=== PATIENT | female | born 1985 | race Caucasian/White ===

== ENCOUNTER 2017-04-13 22:07 | Emergency (ER) | payer OTHER ==
[~2017-04-13] VITALS: Ht 154.9 cm; Wt 65.3 kg
[~2017-04-13 22:07] MED LIST: CELEXA10 MG PO; CIPRO500 MG PO; CLEOCIN150 MG PO; CLINDAMYCIN HC150 MG PO; FLAGYL500 MG PO; KEFLEX; MOTRIN600 MG PO; NAPROSYN500 MG PO; NOHOMEMEDS; NORCO 5/3251 TABLET PO; PRENATAL1 EACH PO; SAPHRIS10 MG SL; SEROQUEL XR150 MG PO; SEROquel PO; ULTRACET1 TABLET PO; VICODIN 5-3001 EACH PO; celeXA PO
[2017-04-13] MEDS ORDERED: ACULAR 0.5100 DROP/5 BOTH EYES (23:05)
[2017-04-13 23:24] VITALS: BP 135/78
== END 2017-04-13 23:24 | disposition home or self-care (01) ==
LOC: EME 22:07 → RME 22:07
DX: H10.33 Unspecified acute conjunctivitis, bilateral (principal); Z88.0 Allergy status to penicillin
CPT/HCPCS: 99281; 99283

== ENCOUNTER 2017-11-17 08:07 | Observation (INO) | payer OTHER ==
[~2017-11-17] VITALS: Ht 154.9 cm; Wt 71.1 kg
[~2017-11-17 08:07] MED LIST changes: +ACULAR 0.5100 DROP/5 BOTH EYES
[2017-11-17 09:53] LABS: HEMATOCRIT 41.9 % (36.0-46.0); HEMOGLOBIN 14.4 G/DL (11.9-15.5); MCH 29.8 PG (29.0-34.0); MCHC 34.4 G/DL (30.0-36.0); MCV 86.6 FL (83-99); PLATELET COUNT 370 K/uL (156-360); RBC DIS.WIDTH-SD 40.8 % (39-53); RED BLOOD COUNT 4.84 M/uL (3.80-5.20)
[2017-11-17 10:03] LABS: CHLORIDE 100 mEq/L (99-109); POTASSIUM 3.6 mEq/L (3.7-5.4); SODIUM 137 mEq/L (136-147)
[2017-11-17 10:05] LABS: GLUCOSE 114 mg/dL (70-99)
[2017-11-17 10:09] LABS: CREATININE 0.9 mg/dL (0.6-1.3); GFR ESTIMATE (CALCULATED) > 59 mL/min/
[2017-11-17 10:10] LABS: UREA NITROGEN (BUN) 11 mg/dL (9-23)
[2017-11-17 10:17] LABS: QUANTITATIVE HCG < 4.0 MIU/ML
[2017-11-17 10:32] LABS: APPEARANCE TURBID ((CLEAR)); BILIRUBIN SMALL; BLOOD LARGE; COLOR AMBER ((YELLOW)); GLUCOSE (STRIP) NEGATIVE; KETONES 5; LEUKOCYTES TRACE; NITRITE NEGATIVE; PROTEIN (STRIP) 100
[2017-11-17 10:55] LABS: RED BLOOD CELLS 30-40 /HPF (0-5)
[2017-11-17 10:57] LABS: AMORPHOUS PHOSPHATE CRYSTALS 3+; BACTERIA 2+ /HPF; EPITHELIAL CELLS 2+ /HPF; MUCUS 3+ /LPF; UCUL ADDED? YES
[2017-11-17] MEDS ORDERED: SIMVASTATIN10 MG PO (14:13)
[2017-11-17] MEDS ORDERED: BUSPAR5 MG PO (14:16)
[2017-11-17] MEDS ORDERED: PRAZOSIN HCL1 MG PO (14:16)
[2017-11-17] MEDS ORDERED: OMEPRAZOLE20 M2 PO (14:16)
[2017-11-17] MEDS ORDERED: SERTRALINE HCL100 MG PO (14:17)
[2017-11-17] MEDS ORDERED: DESYREL100 MG PO (14:17)
[2017-11-17 14:54] VITALS: BP 109/64
[2017-11-17 19:10] VITALS: BP 107/68
[2017-11-17 23:19] VITALS: BP 102/52; BP 1020/52
[2017-11-18 06:26] LABS: HEMATOCRIT 39.1 % (36.0-46.0); MCH 28.3 PG (29.0-34.0); MCHC 31.7 G/DL (30.0-36.0); MCV 89.3 FL (83-99); PLATELET COUNT 297 K/uL (156-360); RBC DIS.WIDTH-CV 13.4 % (11.8-14.6); RBC DIS.WIDTH-SD 43.9 % (39-53); RED BLOOD COUNT 4.38 M/uL (3.80-5.20); WHITE BLOOD COUNT 9.6 K/uL (4.1-10.2)
[2017-11-18 06:29] LABS: HEMOGLOBIN 12.4 G/DL (11.9-15.5)
[2017-11-18 07:32] VITALS: BP 99/58
[2017-11-18] MEDS ORDERED: KEFLEX500 MG PO (10:43)
== END 2017-11-18 11:40 | disposition home or self-care (01) ==
LOC: EME 08:07 → EDOF 12:56 → ENRESERV 12:57 → EDOF 13:39 → 2EAST 14:41 → ENRESERV 14:45 → 2EAST 14:45
PROVIDERS: Nurse Practitioner Family; Student in an Organized Health Care Education/Training Program
DX: N13.6 Pyonephrosis (principal); F17.200 Nicotine dependence, unspecified, uncomplicated; F43.10 Post-traumatic stress disorder, unspecified; F32.9 Major depressive disorder, single episode, unspecified; Z88.0 Allergy status to penicillin
CPT/HCPCS: 74177; 76856; 80048; 81003; 84702; 85027; 87040; 87086; 99281; 99285; G0378; J0696; J1650; J2405; J7030; J7120